=== PATIENT | female | born 1980 | race Caucasian/White ===

== ENCOUNTER → 2016-12-02 | Outpatient (CLI) | payer OTHER ==
--- NOTE | 2016-12-02 13:31 | MAMMOGRAPHY REPORT ---
BILATERAL DIGITAL DIAGNOSTIC MAMMOGRAM TOMOSYNTHESIS WITH CAD AND TARGETED RIGHT ULTRASOUND: 12/03/19 17 CLINICAL HISTORY: The patient reports a palpable right breast lump with associated tenderness for ap proximately 1.5 weeks. The tenderness has somewhat subsided and the lump feels smaller. The patien t reports a history of a benign surgical excision of the left breast many years ago. TECHNIQUE: Breast tomosynthesis in addition to standard 2D mammography was performed. Current study was also evaluated with a Computer Aided Detection (CAD) system. Bilateral CC and MLO 2-D and yelena synthesis images and spot magnification left CC and ML views were obtained. COMPARISON: No prior exams were available for comparison. BREAST COMPOSITION: The tissue of both breasts is heterogeneously dense, which may obscure small ma sses. FINDINGS: A triangle marker garcia the site of the palpable lump in the right upper outer quadrant. No suspicious masses or other suspicious mammographic abnormalities are noted in this region. A li near scar marker denotes a scar in the left upper outer quadrant from prior benign surgical excision . Spot magnification views of the left breast demonstrate regionally distributed punctate benign-ap pearing calcifications seen within the left inferior breast, which are probably benign although shor t interval follow-up is recommended to confirm stability given no priors available for comparison. The remainder of both breasts imaging no suspicious masses, calcifications, or areas of architectura l distortion. A few other scattered bilateral benign-appearing calcifications are seen. Targeted ultrasound was performed of the area of the palpable lump pointed out by the patient, which involves the majority of the right upper outer quadrant and extends into the upper inner quadrant. Sonographically normal tissue is seen in this region, without evidence of a mass or other suspiciou s sonographic abnormality. No cyst is seen. Incidentally noted is duct ectasia in the right subare olar breast, most prominent in the superior subareolar breast, without evidence of an intraductal ma ss. The patient also denies any right nipple discharge. IMPRESSION: ACR-BI-RADS CATEGORY 3: PROBABLY BENIGN, TARGETED ULTRASOUND ACR-BI-RADS CATEGORY 3: HI OBABLY BENIGN 1. No suspicious mammographic or sonographic abnormality at the site of the palpable right breast l ump. Recommend clinical follow-up. 2. Regional punctate benign-appearing calcifications in the left inferior breast, which are probabl y benign. Recommend follow-up diagnostic mammograms of the left breast in 6 months, given no priors to document stability. The patient has been verbally notified of the results. Approximately 10% of breast cancers are not detected with mammography. A negative mammographic repor t should not delay biopsy if a clinically suggestive mass is present. Olivia Holm M.D. ah/:12/02/2016 11:22:13 Marine Tower Operator: Kelton CHONG(Katie)(Elizabeth), [facility] letter sent: Follow Up Recommended 3 BI-RADS Code: ACR-BI-RADS Category 3: Probably Benign Ultrasound BI-RADS: ACR-BI-RADS Category 3: P robably Benign
== END | disposition home or self-care (01) ==
LOC: C.MAMM 09:32
PROVIDERS: ATTEND Obstetrics & Gynecology
DX: N63 Unspecified lump in breast (principal)

== ENCOUNTER → 2017-07-19 | Outpatient (CLI) | payer OTHER ==
--- NOTE | 2017-07-19 14:26 | MAMMOGRAPHY REPORT ---
UNILATERAL LEFT DIGITAL DIAGNOSTIC MAMMOGRAM TOMOSYNTHESIS WITH CAD: 07/19/2017 CLINICAL HISTORY: 36-year-old woman presents for follow-up in the left breast of regional punctate mi crocalcifications in the inferior breast. Patient has a history of prior left breast surgery. TECHNIQUE: Left CC and MLO 2-D and tomosynthesis images, spot magnification left CC and ML views were obtained. Current study was also evaluated with a Computer Aided Detection (CAD) system. COMPARISON: Comparison is made to exams dated: 12/02/2016 mammogram and 12/02/2016 ultrasound - [facility]. BREAST COMPOSITION: The tissue of the left breast is heterogeneously dense, which may obscure small masses. FINDINGS: There is expected architectural distortion in the upper outer posterior left breast, at the site of prior benign surgical excision. There are loosely grouped linear calcifications in the supe rior middle to posterior left breast that are stable comparing to the prior mammograms dated 12/03/19 17. On the spot magnification views, regional punctate microcalcifications are again seen in the inf erior middle one third of the left breast that are stable comparing to the spot magnification views o btained in November 2016. These calcifications most likely represent sclerosing adenosis, but another 6 month follow-up left diagnostic mammogram including spot magnification views is recommended to ensur e longer stability. No other new suspicious mass, new microcalcifications, areas of distortion or as ymmetry are seen in the left breast. IMPRESSION: ACR-BI-RADS CATEGORY 3: PROBABLY BENIGN The regional punctate microcalcifications in the inferior left breast are probably benign, most likel y representing sclerosing adenosis. Another six-month follow-up diagnostic mammogram follow-up left mammogram including spot magnification views is recommended to ensure longer stability. Annual right mammography will also be due at that time. These results and recommendations were discussed with the patient at the time of the exam. Approximately 10% of breast cancers are not detected with mammography. A negative mammographic report should not delay biopsy if a clinically suggestive mass is present. Abiola Nelson M.D. ay/:07/19/2017 10:19:40 Floral Department Specialist: Mariah CHONG(Katie)(Elizabeth), [facility] letter sent: Follow Up Recommended 3 BI-RADS Code: ACR-BI-RADS Category 3: Probably Benign
== END | disposition home or self-care (01) ==
LOC: C.MAMM 08:45
PROVIDERS: ATTEND Physician Assistant
DX: R92.0 Mammographic microcalcification found on diagnostic imaging of breast (principal)

== ENCOUNTER → 2017-08-16 | Outpatient (CLI) | payer OTHER ==
[2017-08-16 11:29] LABS: URINE APPEARANCE CLEAR (CLEAR); URINE BILIRUBIN NEG (NEG); URINE COLOR DK YELLOW; URINE NITRITE NEG (NEG); URINE PH 6.5 (4.5-7.5); URINE SPECIFIC GRAVITY 1.022 (1.000-1.030); UROBILINOGEN NEG (NEG)
[2017-08-16 11:35] LABS: MANUAL MICROSCOPIC REQUIRED? NO; REVIEW REQ? NO
== END | disposition home or self-care (01) ==
LOC: C.LABSPEC 10:55
PROVIDERS: ATTEND Physician Assistant
DX: R39.15 Urgency of urination (principal)

== ENCOUNTER → 2017-08-16 | Outpatient (CLI) | payer OTHER | END | disposition home or self-care (01) | LOC: C.PAPS 11:29 | PROVIDERS: ATTEND Physician Assistant | DX: Z01.419 Encounter for gynecological examination (general) (routine) without abnormal findings (principal) ==

== ENCOUNTER → 2018-01-17 | Outpatient (CLI) | payer OTHER ==
--- NOTE | 2018-01-17 15:31 | MAMMOGRAPHY REPORT ---
BILATERAL DIGITAL DIAGNOSTIC MAMMOGRAM TOMOSYNTHESIS WITH CAD: 01/17/2018 CLINICAL HISTORY: 37-year-old woman presents at time of annual bilateral exam and also a close follow -up of regional punctate microcalcifications in the inferior left breast. She has a history of prior benign left breast surgery. TECHNIQUE: Bilateral breast tomosynthesis in addition to standard 2D mammography was performed. Spot magnification left CC and ML views were also obtained. Current study was also evaluated with a Comp uter Aided Detection (CAD) system. COMPARISON: Comparison is made to exams dated: 07/19/2017 mammogram and 12/02/2016 ultrasound - [facility]. BREAST COMPOSITION: The tissue of both breasts is heterogeneously dense, which may obscure small mas ses. FINDINGS: The glandular pattern of the breasts is similar to prior mammograms, particularly dating ba ck to the 12/02/2016 mammograms. There are a few scattered benign coarse and round calcifications in the right breast and a few faintly visualized punctate microcalcifications in the central right breas t that appears stable dating back to 2016 and are most likely benign. No new suspicious mass, jenny ectural distortion or cluster of microcalcifications is seen in the right breast. There is expected architectural distortion in the upper outer posterior left breast, at the site of p rior benign excision. There are a few linear and curvilinear benign-appearing calcifications in the 12:00 left breast and stable segmental versus regional punctate microcalcifications in the inferior l eft breast, which is redemonstrated on the spot magnification views. No new suspicious masses, asymm etries, unexpected distortion or new suspicious calcifications are seen in the left breast. Another 12 month follow-up diagnostic mammogram including spot magnification views is recommended to ensure l onger stability. IMPRESSION: ACR-BI-RADS CATEGORY 3: PROBABLY BENIGN Stable bilateral mammograms, including regional versus segmental punctate microcalcifications in the inferior left breast, without definite mammographic evidence of malignancy. Another 12 month follow- up bilateral diagnostic mammogram including left spot magnification views is recommended to ensure lo nger stability. These results and recommendations were discussed with the patient at the time of the exam. Approximately 10% of breast cancers are not detected with mammography. A negative mammographic report should not delay biopsy if a clinically suggestive mass is present. Abiola Nelson M.D. ay/:01/17/2018 11:18:40 Compensation And Benefits Manager: Nicky Pierce RT(R)(M), [facility] letter sent: Follow Up Recommended 3 BI-RADS Code: ACR-BI-RADS Category 3: Probably Benign
== END | disposition home or self-care (01) ==
LOC: C.MAMM 09:17
PROVIDERS: ATTEND Physician Assistant
DX: R92.0 Mammographic microcalcification found on diagnostic imaging of breast (principal)

== ENCOUNTER 2018-01-23 17:35 | Emergency (ER) | payer OTHER ==
[~2018-01-23] VITALS: Ht 162.6 cm; Wt 62.6 kg
[2018-01-23 17:42] VITALS: TEMP 36.8; Ht 162.6 cm; Wt 62.6 kg
[2018-01-23] MEDS ORDERED: ACETAMINOPHEN 500 MG TAB PO STA (18:02)
[2018-01-23] MEDS ORDERED: LIDOCAINE/EPINEPH/TETRACAINE 1 EA SYR EXT STA (18:21)
--- NOTE | 2018-01-23 19:11 | EMERGENCY ROOM VISIT NOTE ---
ED Visit Note First contact with patient: 17:49 CHIEF COMPLAINT: Facial laceration HISTORY OF PRESENT ILLNESS: This 37-year-old female patient presents emergency department, ambulatory, complaining of a laceration to the left side of the face. The patient states the metal part of a glass door hit the left side of her forehead approximately 45 minutes prior to arrival. There is no loss of consciousness. The patient states she has been using a dry towel to clean up the blood. She denies any history of previous head injuries. She reports a throbbing headache in the injured area and rates it 3-4/10. There was no loss of consciousness, vomiting, or unusual behavior afterwards. Denies neck pain. No headache, nausea, or blurred vision. There is minimal active bleeding. The patient's tetanus shot is up to date. REVIEW OF SYSTEMS: A 6 system review of systems was completed with positives and pertinent negatives listed in the HPI. ALLERGIES: None MEDICATIONS: None PMH: None SOCIAL HISTORY: The patient is locally with family. She denies drug, alcohol, tobacco use. PHYSICAL EXAM: Vital Signs: Reviewed Nurse's notes, vital signs stable. GENERAL : This is a 37-year-old white female, in no acute distress, well-developed, well -nourished. NEURO: The patient is alert and oriented to person place and time. No focal neurological defects. EYES: Pupils are round, equal, and react to light. EOMI. EARS: No hemotympanum. NECK: Supple. No cervical spine tenderness. FACE: No facial bone tenderness or mandibular tenderness. The mouth can open fully. The teeth are well aligned. No loose or chipped teeth. SKIN: There is a 0.5 cm puncture wound with surrounding superficial abrasion measuring approximately 2 cm x 1 cm on the left anterior forehead. The edges gape apart with traction. There is no active bleeding and no foreign material in the wound. There are no deep structures present. Capillary refill less than two seconds. Normal sensation to light and sharp touch. EMERGENCY DEPARTMENT COURSE: I examined the patient. Verbal consent was obtained to perform the procedure. LET gel was applied to the wound and allowed to sit for approximately 30 minutes. Once the patient was anesthetized , the wound was copiously irrigated under pressure with sterile saline. The wound was explored and was as described above. The laceration was repaired using 2 simple interrupted 6-0 nylon sutures with the wound edges being well approximated. The patient tolerated the procedure well. Hemostasis was achieved. The area was cleaned with sterile saline and dressed with bacitracin ointment. The patient was discharged home in good condition. I attest that I have personally reviewed the patient's current medication list. Patient was found to have normal blood pressure on screening and does not require follow-up. Differential diagnosis includes laceration, contusion, fracture, sprain/strain, tendon or ligament injury, neurovascular compromise, foreign body, closed head injury, intracranial hemorrhage, concussion, assault, and others DIAGNOSIS: Facial laceration The chart was completed utilizing [employer] Speech voice recognition software. Grammatical errors, random word insertions, pronoun errors, and incomplete sentences are an occasional consequence of this system due to software limitations, ambient noise, and hardware issues. Any formal questions or concerns about the content, text, or information contained within the body of this dictation should be directly addressed to the provider for clarification. Vital Signs Date Time Temp Pulse Resp B/P (MAP) Pulse Ox O2 Delivery O2 Flow Rate FiO2 01/23/18 17:42 36.8 58 20 113/73 100 Room Air Medications Administered Medications (Trade) Dose Ordered Sig/Vincenzo Route Start Time Stop Time Status Last Admin Dose Admin Acetaminophen (Tylenol Tab) 1,000 mg NOW STAT PO 01/23/18 18:02 01/23/18 18:03 DC 01/23/18 18:12 1,000 MG Tetracaine/ Epinephrine/ Lidocaine (L.e.t. Gel 4%/ 1:100/0.5%) 1 ea UD STAT EXT 01/23/18 18:21 01/23/18 18:22 DC 01/23/18 18:34 1 EA Departure Information Impression Primary Impression: Facial laceration Additional Impression: Facial abrasion Dispostion Home / Self-Care Condition GOOD Referrals No Doctor, Assigned (PCP) Angelita Mendoza MD Patient Instructions ED Laceration Facial Sutr Tape, Wit studio Additional Instructions You have received 2 sutures on your face. These sutures are NOT dissolvable and WILL need to be removed by a health care provider in 4-6 days. You can return to the Emergency Department or contact your Primary Care Provider to have the sutures removed. Proper wound care is essential for adequate wound healing and infection prevention. You can shower and clean the wound with soap and water. Do not scour over the wound, pat dry with a towel. Do not submerse the wound (i.e. bathe or dish wash) until the sutures have been removed. You can use an antibiotic ointment with a dressing over the wound for the next 3-4 days. After this time you may leave the wound dry and open to the air. If crust develops over the wound you can use a Q-tip to apply a 1:1 peroxide:water solution to clean the wound. Look for signs of infection of the wound including: increased pain, swelling, foul discharge, streaking, or increased temperature. If any of these are noticed you should return to the Emergency Department for further assessment and treatment. As with any laceration you may have received nerve damage to the surrounding tissues. This damage may or may not be permanent. You should keep the area covered with sunscreen for the first 6 months to 1 year when at risk for exposure to help minimize scarring. Follow-up with plastic surgery if necessary for scarring. You can also use scar reducing creams or Vitamin E oil to help minimize scarring. For pain control, you can use the following [id number] medicines (if >12 yo): Ibuprofen(Motrin, Advil) may be used for fever or pain. Use 600mg every six hours as needed. Take with food. Avoid using more than 2400mg in a 24 hour period. Do not use 2400mg per day for more than three consecutive days without physician direction. Prolonged inappropriate use can lead to stomach upset or ulcers. (AND/OR) Acetaminophen(Tylenol) may be used for fever or pain. Use 1000mg every six hours as needed. Avoid using more than 3000mg in a 24 hour period. Return to the emergency department if your symptoms worsen despite treatment course outlined above. Problem Qualifiers Primary Impression: Facial laceration Encounter type: initial encounter Qualified Codes: S01.81XA - Laceration without foreign body of other part of head, initial encounter Additional Impression: Facial abrasion Encounter type: initial encounter Qualified Codes: S00.81XA - Abrasion of other part of head, initial encounter
[2018-01-23 20:06] VITALS: BP 115/71; PULSE 59; O2SAT 99
== END 2018-01-23 19:54 | disposition home or self-care (01) ==
LOC: C.EDB 17:36 → C.EDD 19:54
DX: S01.81XA Laceration without foreign body of other part of head, initial encounter (principal); W22.8XXA Striking against or struck by other objects, initial encounter